=== PATIENT | male | born 1970 | race Caucasian/White ===

== ENCOUNTER 2016-07-19 21:39 | Emergency (ER) | payer MEDICAID ==
[~2016-07-19] VITALS: Ht 185.4 cm; Wt 102.3 kg
[2016-07-19] MEDS ORDERED: LISINOPRIL 20 MG TABLET PO ONE (23:30)
[2016-07-19] MEDS ORDERED: LISINOPRIL 20 MG TABLET ONE (23:35)
[2016-07-19 23:57] VITALS: BP 150/82
[2016-07-20] MEDS ORDERED: KETOROLAC 30 MG/1 ML IM ONE (00:30)
== END 2016-07-20 00:36 | disposition home or self-care (01) ==
LOC: ED 23:59
DX: S06.0X0A Concussion without loss of consciousness, initial encounter (principal); S16.1XXA Strain of muscle, fascia and tendon at neck level, initial encounter; I10 Essential (primary) hypertension; V49.49XA Driver injured in collision with other motor vehicles in traffic accident, initial encounter; Y93.89 Activity, other specified; Y92.410 Unspecified street and highway as the place of occurrence of the external cause; Y99.9 Unspecified external cause status
CPT/HCPCS: 70450; 72125; 93005; 99284

== ENCOUNTER 2017-07-02 06:53 | Inpatient (IN) | payer MEDICAID ==
[~2017-07-02] VITALS: Ht 185.4 cm; Wt 115.0 kg
[2017-07-02] MEDS ORDERED: SODIUM CHLORIDE FLUSH 10ML SYR IVF ONE (07:30)
[2017-07-02] MEDS ORDERED: ASPIRIN 81 MG TABLET CHEW PO ONE (07:30)
[2017-07-02] MEDS ORDERED: LISI-170 PO (07:39)
[2017-07-02] MEDS ORDERED: ASPI-496 PO (07:40)
[2017-07-02 07:42] LABS: BASOPHILS # (AUTO) 0.05 x10^3/uL (0-0.1); BASOPHILS % (AUTO) 1 % (0-1); EOSINOPHILS # (AUTO) 0.32 x10^3/uL (0-0.4); EOSINOPHILS % (AUTO) 3 % (1-7); LYMPHOCYTES # (AUTO) 2.64 x10^3/uL (1-3.4); LYMPHOCYTES % (AUTO) 26 % (22-44); MD NO; MEAN CORPUSCULAR HEMOGLOBIN 30.2 pg (27.5-34.5); MEAN CORPUSCULAR HGB CONC 33.6 g/dL (33.2-36.2); MEAN CORPUSCULAR VOLUME 89.8 fL (81-97); MEAN PLATELET VOLUME 7.4 fL (7.4-10.4); MONOCYTES # (AUTO) 0.73 x10^3/uL (0.2-0.8); MONOCYTES % (AUTO) 7 % (2-9); NEUTROPHILS # (AUTO) 6.29 x10^3/uL (1.8-6.8); NEUTROPHILS % (AUTO) 63 % (42-75); PLATELET COUNT 270 x10^3/uL (130-400); RED BLOOD COUNT 5.35 x10^6/uL (4.38-5.82); RED CELL DISTRIBUTION WIDTH 13.2 % (9.4-14.8)
[2017-07-02] MEDS ORDERED: ASPIRIN 81 MG TABLET CHEW ONE (07:44)
[2017-07-02 07:54] LABS: ALBUMIN 3.9 g/dL (3.4-5.0); ANION GAP 9 mmol/L (5-15); CALCIUM 8.7 mg/dL (8.5-10.1); CHLORIDE 106 mmol/L (98-107); CREATININE 1.26 mg/dL (0.7-1.3)
[2017-07-02 07:58] LABS: TROPONIN I < 0.015 ng/mL (0.000-0.045)
[2017-07-02] MEDS ORDERED: morphine SULFATE 10 MG/ML, 1ML IVPush PRN (09:30)
[2017-07-02] MEDS ORDERED: ONDANSETRON 2MG/ML, 2ML IVPush PRN (09:30)
[2017-07-02] MEDS ORDERED: HYDROcodone/APAP 5/325 TABLET PO PRN (09:30)
[2017-07-02] MEDS ORDERED: hydrALAzine 20 MG/ML, 1ML IVPush PRN (09:30)
[2017-07-02] MEDS ORDERED: ACETAMINOPHEN 325 MG TABLET PO PRN (09:30)
[2017-07-02 10:00] LABS: MEAN CORPUSCULAR HEMOGLOBIN 30.4 pg (27.5-34.5); MEAN CORPUSCULAR HGB CONC 33.6 g/dL (33.2-36.2); MEAN CORPUSCULAR VOLUME 90.6 fL (81-97); MEAN PLATELET VOLUME 7.5 fL (7.4-10.4); PLATELET COUNT 255 x10^3/uL (130-400); RED BLOOD COUNT 5.41 x10^6/uL (4.38-5.82); RED CELL DISTRIBUTION WIDTH 12.9 % (9.4-14.8)
[2017-07-02] MEDS: ASPIRIN 81 MG TABLET EC PO SCH (10:00)
[2017-07-02 10:02] LABS: BASOPHILS # (AUTO) 0.05 x10^3/uL (0-0.1); BASOPHILS % (AUTO) 0 % (0-1); EOSINOPHILS # (AUTO) 0.24 x10^3/uL (0-0.4); EOSINOPHILS % (AUTO) 2 % (1-7); LYMPHOCYTES # (AUTO) 2.33 x10^3/uL (1-3.4); LYMPHOCYTES % (AUTO) 17 % (22-44); MD NO; MONOCYTES # (AUTO) 0.78 x10^3/uL (0.2-0.8); MONOCYTES % (AUTO) 6 % (2-9); NEUTROPHILS # (AUTO) 10.14 x10^3/uL (1.8-6.8); NEUTROPHILS % (AUTO) 75 % (42-75)
[2017-07-02 10:15] LABS: FREE T4 (FREE THYROXINE) 0.98 ng/dL (0.76-1.46); THYROID STIMULATING HORMONE 2.52 mIU/L (0.358-3.740)
[2017-07-02 12:27] VITALS: BP 112/75
[2017-07-02] MEDS: PANTOPROZOLE 40MG TABLET PO SCH (12:40)
[2017-07-02] MEDS: ENOXAPARIN 40 MG/0.4 ML SQ SCH (12:41)
[2017-07-02] MEDS: LISINOPRIL 20 MG TABLET PO SCH (12:41)
[2017-07-02 13:00] VITALS: BP 169/90
[2017-07-02 13:10] LABS: MICROSCOPIC NOT IND
[2017-07-02 13:14] LABS: CULTURE INDICATED? NO
[2017-07-02 13:22] LABS: AMPHETAMINE SCREEN, URINE Positive (Negative); BARBITURATE SCREEN, URINE Negative (Negative); BENZODIAZEPINE SCREEN, URINE Negative (Negative); CANNABINOID SCREEN, URINE Positive (Negative); COCAINE SCREEN, URINE Negative (Negative); METHADONE SCREEN, URINE Negative (Negative); OPIATE SCREEN, URINE Positive (Negative)
[2017-07-02 20:00] VITALS: BP 126/82
[2017-07-02 20:01] VITALS: BP 128/84
[2017-07-02 20:02] VITALS: BP 136/82
[2017-07-02 20:13] LABS: TROPONIN I < 0.015 ng/mL (0.000-0.045)
[2017-07-03] VITALS (7 sets, daily range): BP systolic 121–167; BP diastolic 83–95
[2017-07-03 04:39] LABS: ALANINE AMINOTRANSFERASE 59 U/L (12-78); ALBUMIN 3.4 g/dL (3.4-5.0); ANION GAP 6 mmol/L (5-15); CALCIUM 8.5 mg/dL (8.5-10.1); CHLORIDE 107 mmol/L (98-107); CHOLESTEROL, TOTAL 213 mg/dL (140-239)
[2017-07-03 04:42] LABS: ALKALINE PHOSPHATASE 75 U/L (45-117); BILIRUBIN,TOTAL 0.2 mg/dL (0.2-1.0); CHOL/HDL RATIO 6.7; HDL CHOL % 15 % (26-37); HDL CHOLESTEROL (DIRECT) 32 mg/dL (40-60); LDL CHOLESTEROL,CALCULATED 134 mg/dL (54-169); LDL/HDL RATIO 4.2 (0.5-3.0); TOTAL PROTEIN 7.4 g/dL (6.4-8.2); TRIGLYCERIDES 233 mg/dL (50-200); TROPONIN I < 0.015 ng/mL (0.000-0.045); VLDL CHOLESTEROL 47 mg/dL (0-25)
[2017-07-03] MEDS: ENOXAPARIN 40 MG/0.4 ML SQ SCH (08:26)
[2017-07-03] MEDS: LISINOPRIL 20 MG TABLET PO SCH (08:26)
[2017-07-03] MEDS: ASPIRIN 81 MG TABLET EC PO SCH (08:26)
[2017-07-03] MEDS: PANTOPROZOLE 40MG TABLET PO SCH (08:26)
[2017-07-03] MEDS: NICOTINE GUM 2 MG BC PRN (08:30)
[2017-07-03] MEDS ORDERED: SODIUM CHLORIDE 0.9% 1,000 ML IV SCH (15:00)
[2017-07-03] MEDS ORDERED: OMNIPAQUE 350 MG/ML, 100ML BOTTLE ONE (17:16)
[2017-07-03] MEDS ORDERED: SIMVASTATIN 20 MG TABLET PO SCH (21:00)
[2017-07-04] VITALS (10 sets, daily range): BP systolic 122–172; BP diastolic 68–105
[2017-07-04] MEDS ORDERED: REGADENOSON 0.4 MG/5 ML SYRINGE ONE (07:49)
[2017-07-04] MEDS: ASPIRIN 81 MG TABLET EC PO SCH (07:52)
[2017-07-04] MEDS: ENOXAPARIN 40 MG/0.4 ML SQ SCH (07:52)
[2017-07-04] MEDS: PANTOPROZOLE 40MG TABLET PO SCH (07:52)
[2017-07-04] MEDS: LISINOPRIL 20 MG TABLET PO SCH (07:52)
[2017-07-04] MEDS ORDERED: AMINOPHYLLINE 25 MG/ML, 10ML ONE (08:39)
[2017-07-04] MEDS: DILTIAZEM 60 MG TABLET PO SCH ×2 (10:36→15:37)
[2017-07-04] MEDS: NICOTINE GUM 2 MG BC PRN (10:39)
== END 2017-07-04 22:45 | disposition left against medical advice (07) | DRG 311 ==
LOC: ED 07:48 → EDIP 09:05 → SUATTDRO 09:16 → 5SO 11:18
PROVIDERS: ADMIT Hospitalist; ATTEND Hospitalist
DX: I20.9 Angina pectoris, unspecified (principal); G93.40 Encephalopathy, unspecified; I50.30 Unspecified diastolic (congestive) heart failure; F15.129 Other stimulant abuse with intoxication, unspecified; E78.5 Hyperlipidemia, unspecified; I11.0 Hypertensive heart disease with heart failure; Z79.82 Long term (current) use of aspirin; Z82.49 Family history of ischemic heart disease and other diseases of the circulatory system; Z87.891 Personal history of nicotine dependence; T40.605A Adverse effect of unspecified narcotics, initial encounter; T40.7X5A Adverse effect of cannabis (derivatives), initial encounter; Y92.89 Other specified places as the place of occurrence of the external cause; Z53.21 Procedure and treatment not carried out due to patient leaving prior to being seen by health care provider
CPT/HCPCS: 36415; 71045; 71275; 78452; 80048; 80053; 80061; 80307; 81003; 82040; 82962; 83735; 84100; 84439; 84443; 84484; 85025; 93005; 93017; 93306; 93880; 99285; J2785; Q9967; A9502; C9898; J0280; J7030